=== PATIENT | female | born 1980 | race Caucasian/White ===

== ENCOUNTER 2018-01-14 11:56 | Emergency (ER) | payer MEDICAID ==
[2018-01-14] MEDS ORDERED: LIDOCAINE 4%/MENTHOL 1% PATCH TD ONE (12:22)
--- NOTE | 2018-01-14 13:44 | EDPHY ---
H & P Time Seen by Provider: 01/14/18 12:00 HPI/ROS: CHIEF COMPLAINT: Right adnexal pain HISTORY OF PRESENT ILLNESS: 37-year-old female who was diagnosed with polycystic ovarian syndrome 10 years ago presents reporting significant discomfort the right adnexa. Patient states pain started about 5 days ago. His similar in characteristic to her prior discomfort, which usually occurs during ovulation. However, pain is not radiating into the lower back. She is nauseous but has not had any vomiting. Patient takes no medications for her PCOS. She has had no fever. Mild diarrhea. No complaints of chest pain or shortness of breath. No urinary complaints. No burning when she urinates or blood in her urine. Denies vaginal bleeding. Denies vaginal discharge. Denies any new sexual partners. Does not use condoms but partner has had a vasectomy. REVIEW OF SYSTEMS: Aside from elements discussed in the HPI, a comprehensive 10-point review of systems was reviewed and is negative. PAST MEDICAL HISTORY: PCOS. SOCIAL HISTORY: Rare marijuana use, no alcohol, non smoker VITAL SIGNS Reviewed by me. GENERAL: Well-developed, well-nourished, resting comfortably in no respiratory distress. HEENT: Atraumatic. Eyes: No icterus, no injection. Mouth: moist mucous membranes. No erythema or lesions. Neck: supple with no adenopathy. LUNGS: Clear to auscultation bilaterally, no wheezes, rhonchi or rales. CARDIAC: Regular rate and rhythm, no rubs, murmurs or gallops. ABDOMEN: Soft, tenderness in the right adnexal area, no guarding or rebound. No tenderness at McBurney's point. Nondistended, bowel sounds normal. BACK: No CVA tenderness. Does report discomfort at the low right paraspinous region. EXTREMITIES: No trauma. No edema. Range of motion is normal throughout. NEURO: Alert and oriented, grossly nonfocal. SKIN: Warm and dry, no rash. PSYCHIATRIC: Normal mentation, no agitation. Smoking Status: Former smoker Constitutional: Initial Vital Signs Temperature (C) 37.1 C 01/14/18 12:02 Heart Rate 93 01/14/18 12:02 Respiratory Rate 18 01/14/18 12:02 Blood Pressure 98/72 L 01/14/18 12:02 O2 Sat (%) 99 01/14/18 12:02 O2 Delivery Mode Room Air Allergies/Adverse Reactions: No Known Allergies Allergy (Verified 01/14/18 12:01) Home Medications: Medication Instructions Recorded NK [No Known Home Meds] 01/14/18 Medical Decision Making - Diagnostics Imaging Results: Imaging Impressions Pelvic/Renal Ultrasound 01/14/18 12:08 Impression: Normal ultrasound pelvis. No source for right sided pain identified. Results called to Dr. Mckenzie. Abdomen Ultrasound 01/14/18 12:23 Impression: No indirect sonographic evidence for appendicitis. Results called to Mylene Mckenzie M.D. Abdomen CT 01/14/18 14:35 Impression: 1. No evidence for appendicitis. 2. Query constipation with secondary functional small bowel obstruction. 3. See above report for additional findings. Results called and discussed with Mylene Mckenzie MD on 01/14/2018 at 1627 hours. Imaging: Discussed imaging studies w/ storage garage manager Radiologist ED Course/Re-evaluation: Patient declined pain medications. She did accept a lidocaine patch over her lower back. Ultrasound ordered. Urinalysis negative except for small amount of yeast. Negative test. Ultrasound was negative for any ovarian pathology or cysts. On re-examination the patient continues to complain of moderately severe right lower quadrant discomfort with pain into her back. We discussed the fact that the ultrasound of the appendix did not visualize the appendix although there were no secondary signs of appendicitis. At this point the patient agreed to have an IV placed, received a L of normal saline, and have labs drawn including CBC and chemistries. CT scan was ordered. CT scan demonstrates a normal appearing appendix. Patient does have a significant amount of fecal material in the cecum with some fluid in the small bowel. I discussed the CT findings with the patient. She is reassured within normal appendix findings as well as the normal ultrasound. We discussed treatment for constipation. She will follow up with [facility] as needed. Differential Diagnosis: The differential diagnosis for the patient's abdominal pain was considered including but not limited to ovarian cyst, pelvic inflammatory disease, ovarian torsion, urinary tract infection, related complications, constipation , and appendicitis. - Data Points Laboratory Results: Laboratory Results 01/14/18 14:50 01/14/18 14:50 01/14/18 01/14/18 01/14/18 14:50 14:50 14:50 WBC 6.87 10^3/uL 10^3/uL (3.80-9.50) RBC 4.99 10^6/uL 10^6/uL (4.18-5.33) Hgb 15.4 g/dL g/dL (12.6-16.3) Hct 44.8 % % (38.0-47.0) MCV 89.8 fL fL (81.5-99.8) MCH 30.9 pg pg (27.9-34.1) MCHC 34.4 g/dL g/dL (32.4-36.7) RDW 12.0 % % (11.5-15.2) Plt Count 223 10^3/uL 10^3/uL (150-400) MPV 9.2 fL fL (8.7-11.7) Neut % (Auto) 73.8 % % (39.3-74.2) Lymph % (Auto) 18.5 % % (15.0-45.0) [place] % (Auto) 6.1 % % (4.5-13.0) Eos % (Auto) 0.7 % % (0.6-7.6) Baso % (Auto) 0.6 % % (0.3-1.7) Nucleat RBC Rel Count 0.0 % % (0.0-0.2) Absolute Neuts (auto) 5.07 10^3/uL 10^3/uL (1.70-6.50) Absolute Lymphs (auto) 1.27 10^3/uL 10^3/uL (1.00-3.00) Absolute Monos (auto) 0.42 10^3/uL 10^3/uL (0.30-0.80) Absolute Eos (auto) 0.05 10^3/uL 10^3/uL (0.03-0.40) Absolute Basos (auto) 0.04 10^3/uL 10^3/uL (0.02-0.10) Absolute Nucleated RBC 0.00 10^3/uL 10^3/uL (0-0.01) Immature Gran % 0.3 % % (0.0-1.1) Immature Gran # 0.02 10^3/uL 10^3/uL (0.00-0.10) Sodium 139 mEq/L mEq/L (135-145) Potassium 3.9 mEq/L mEq/L (3.5-5.2) Chloride 103 mEq/L mEq/L (97-110) Carbon Dioxide 26 mEq/l mEq/l (22-31) Anion Gap 10 mEq/L mEq/L (8-16) BUN 18 mg/dL mg/dL (7-23) Creatinine 0.7 mg/dL mg/dL (0.6-1.0) Estimated GFR > 60 Glucose 88 mg/dL mg/dL (70-100) Calcium 9.6 mg/dL mg/dL (8.5-10.4) Beta HCG, Qual NEGATIVE Urine Color Urine Appearance Urine pH Ur Specific [place] Urine Protein Urine Ketones Urine Blood Urine Nitrate Urine Bilirubin Urine Urobilinogen Ur Leukocyte Esterase Urine RBC Urine WBC Ur Epithelial Cells Urine Bacteria Urine Yeast Urine Glucose Urine Test 01/14/18 01/14/18 12:35 12:35 WBC RBC Hgb Hct MCV MCH MCHC RDW Plt Count MPV Neut % (Auto) Lymph % (Auto) [place] % (Auto) Eos % (Auto) Baso % (Auto) Nucleat RBC Rel Count Absolute Neuts (auto) Absolute Lymphs (auto) Absolute Monos (auto) Absolute Eos (auto) Absolute Basos (auto) Absolute Nucleated RBC Immature Gran % Immature Gran # Sodium Potassium Chloride Carbon Dioxide Anion Gap BUN Creatinine Estimated GFR Glucose Calcium Beta HCG, Qual Urine Color YELLOW Urine Appearance CLEAR Urine pH 7.5 (5.0-7.5) Ur Specific [place] 1.010 (1.002-1.030) Urine Protein NEGATIVE (NEGATIVE) Urine Ketones NEGATIVE (NEGATIVE) Urine Blood NEGATIVE (NEGATIVE) Urine Nitrate NEGATIVE (NEGATIVE) Urine Bilirubin NEGATIVE (NEGATIVE) Urine Urobilinogen 0.2 EU EU (0.2-1.0) Ur Leukocyte Esterase NEGATIVE (NEGATIVE) Urine RBC 0-1 /hpf /hpf (0-3) Urine WBC 0-1 /hpf /hpf (0-3) Ur Epithelial Cells 1+ /lpf /lpf (NONE-1+) Urine Bacteria TRACE /hpf H /hpf (NONE SEEN) Urine Yeast OCCASIONAL /hpf H /hpf (NONE SEEN) Urine Glucose NEGATIVE (NEGATIVE) Urine Test NEGATIVE Medications Given: Discontinued Medications Sodium Chloride (Ns) 1,000 mls @ 0 mls/hr IV EDNOW ONE; Wide Open PRN Reason: Protocol Stop: 04/21/18 14:35 Last Admin: 01/14/18 15:31 Dose: 1,000 mls Miscellaneous Medication (Icy Hot Lidocaine/Menthol 4%/1% Patch) 1 patch TD EDNOW ONE Stop: 01/14/18 12:23 Last Admin: 01/14/18 12:40 Dose: 1 patch Departure - Departure Disposition: Home, Routine, Self-Care Clinical Impression: Abdominal pain Qualifiers: Abdominal location: right lower quadrant Qualified Code(s): R10.31 - Right lower quadrant pain Constipation Qualifiers: Constipation type: unspecified constipation type Qualified Code(s): K59.00 - Constipation, unspecified Condition: Good Instructions: Constipation (ED), High Fiber Diet (ED), Acute Abdominal Pain (ED ) Additional Instructions: Please drink plenty of fluid. Please drink half a bottle magnesium citrate. Wait 4 hr and if you do not have significant stool output, the you may drink the other half. Please begin eating a high-fiber diet. If you continue having difficulties with constipation, consider Metamucil or other laxative for several days. Please follow up at [facility] for ongoing discomfort. Referrals: REMIGIO SANFORD [Other] - As per Instructions
[2018-01-14] MEDS ORDERED: NS 1,000 ML IV ONE (14:34)
[2018-01-14 14:57] LABS: PLATELET COUNT 223 10^3/uL (150-400)
[2018-01-14] MEDS ORDERED: IOPAMIDOL (ISOVUE-300) 100 ML BTL ONE (15:31)
[2018-01-14 16:38] VITALS: BP 95/63
[2018-01-14] MEDS ORDERED: PATCH REMOVAL 1 EA PATCH TD SCH (21:00)
== END 2018-01-14 16:37 | disposition home or self-care (01) ==
LOC: CED 11:56
DX: K59.00 Constipation, unspecified (principal); E86.9 Volume depletion, unspecified; Z87.891 Personal history of nicotine dependence
CPT/HCPCS: 74177-PO; 76705-PO; 76856-PO; 80048-PO; 81003-PO; 81015-PO; 81025-PO; 84703-PO; 85025-PO; Q9967